=== PATIENT | female | born 1980 | race Caucasian/White ===

== ENCOUNTER 2021-03-09 08:31 | Emergency (ER) | payer MEDICAID ==
[~2021-03-09] VITALS: Ht 172.7 cm; Wt 75.0 kg
[2021-03-09 08:35] VITALS: BP 121/76
[2021-03-09] MEDS ORDERED: LIDOCAINE 1% 20 ML VIAL SQ ONE (10:00)
[2021-03-09] MEDS ORDERED: PERTUSS(ACELL),DIPH,TET VAC/PF 0.5 ML SYRINGE IM. ONE (10:00)
[2021-03-09] MEDS ORDERED: BACITRACIN 0.9 GM PACKET OINTMENT TP ONE (10:00)
[2021-03-09] MEDS ORDERED: POVIDONE-IODINE 10% 15 ML SOLUTION UD TP ONE (10:30)
== END 2021-03-09 11:22 | disposition home or self-care (01) ==
LOC: EMS 08:31
DX: S81.811A Laceration without foreign body, right lower leg, initial encounter (principal); F17.210 Nicotine dependence, cigarettes, uncomplicated; Z88.8 Allergy status to other drugs, medicaments and biological substances; W45.8XXA Other foreign body or object entering through skin, initial encounter; Y93.89 Activity, other specified; Y92.89 Other specified places as the place of occurrence of the external cause; Y99.8 Other external cause status
CPT/HCPCS: 12004; 90471; 90715; 99283; J3490

== ENCOUNTER 2021-09-22 23:55 | Emergency (ER) | payer MEDICAID ==
[~2021-09-22] VITALS: Ht 170.2 cm; Wt 88.6 kg
[2021-09-23 02:47] VITALS: BP 124/84
[2021-09-23] MEDS ORDERED: KETOROLAC TROMETHAMINE 60 MG/2 ML VIAL IM ONE (04:30)
[2021-09-23] MEDS ORDERED: METHOCARBAMOL 500 MG TABLET PO ONE (04:30)
[2021-09-23] MEDS ORDERED: IBUP-1554 PO (05:40)
[2021-09-23] MEDS ORDERED: BACL10TA PO (05:40)
[2021-09-23] MEDS ORDERED: TRAM50TA4 PO (05:40)
== END 2021-09-23 05:58 | disposition home or self-care (01) ==
LOC: EMS 23:56
DX: M54.50 Low back pain, unspecified (principal); F17.210 Nicotine dependence, cigarettes, uncomplicated; Z59.00 Homelessness unspecified; Z88.8 Allergy status to other drugs, medicaments and biological substances
CPT/HCPCS: 72100; 96372; 99283; J1885